=== PATIENT | female | born 1985 | race Caucasian/White ===

== ENCOUNTER → 2021-05-08 | Outpatient (CLI) | payer BC ==
[~2021-05-08] MED LIST: ASPIR 8181 MG PO; CIPRO500 MG PO; FLAGYL500 MG PO; NORCO 7.5-3251 EACH PO; ONDANSETRON ODT4 MG PO; ZOFRAN ODT 4 MG4 MG GT
== END ==
LOC: EXRD 13:00
DX: E04.9 Nontoxic goiter, unspecified (principal)
CPT/HCPCS: 76536

== ENCOUNTER → 2022-05-19 | Outpatient (CLI) | payer BC | LOC: KOH-I 15:15 | DX: R10.2 Pelvic and perineal pain (principal) | CPT/HCPCS: 76775 ==